=== PATIENT | male | born 1940 | race Caucasian/White ===

== ENCOUNTER 2021-10-16 00:23 | Inpatient (IN) | payer OTHER ==
[2021-10-16 02:38] LABS: BASO % 0.6 % (0-2.0); EOS % 0.1 % (0-4.5); HEMATOCRIT 42.5 % (35.4-49); HEMOGLOBIN 13.7 GM/dL (11.7-16.9); LYMPH % 10.2 % (8-40); MCH 24.6 pg (25.7-33.7); MCHC 32.2 g/dl (32.0-35.9); MEAN CELL VOLUME 76.5 fl (80-96); MEAN PLT VOLUME 8.2 fl (7.5-11.1); MONO % 6.6 % (3.8-10.2); NEUT % 82.5 % (42.8-82.8); PLATELET COUNT 269 10^3/uL (134-434); RBC 5.56 M/mm3 (4.00-5.60); RDW 16.6 % (11.9-15.9); WHITE BLOOD COUNT 10.1 K/mm3 (4.0-10.0)
[2021-10-16 02:52] LABS: CALCIUM 9.9 mg/dL (8.5-10.1)
[2021-10-16 02:53] LABS: ALBUMIN 2.3 g/dl (3.4-5.0); MAGNESIUM 2.1 mg/dL (1.8-2.4)
[2021-10-16 02:56] LABS: CREATININE 2.1 mg/dL (0.55-1.3); PHOSPHOROUS 3.3 mg/dL (2.5-4.9)
[2021-10-16 02:57] LABS: TOT PROT 8.3 g/dl (6.4-8.2)
[2021-10-16 02:58] LABS: BILIRUBIN,TOTAL 0.4 mg/dL (0.2-1)
[2021-10-16 04:42] LABS: CALCIUM 9.5 mg/dL (8.5-10.1)
[2021-10-16 04:43] LABS: BLOOD UREA NITROGEN 41.8 mg/dL (7-18)
[2021-10-16 04:46] LABS: CREATININE 2.1 mg/dL (0.55-1.3)
[2021-10-17 13:29] LABS: HEMATOCRIT 35.8 % (35.4-49); HEMOGLOBIN 11.3 GM/dL (11.7-16.9); MCH 24.5 pg (25.7-33.7); MCHC 31.5 g/dl (32.0-35.9); MEAN PLT VOLUME 8.8 fl (7.5-11.1); PLATELET COUNT 215 10^3/uL (134-434); RBC 4.59 M/mm3 (4.00-5.60); RDW 16.6 % (11.9-15.9); WHITE BLOOD COUNT 17.3 K/mm3 (4.0-10.0)
[2021-10-17 14:07] LABS: CALCIUM 8.9 mg/dL (8.5-10.1)
[2021-10-17 14:08] LABS: BLOOD UREA NITROGEN 41.2 mg/dL (7-18)
[2021-10-17 14:11] LABS: CREATININE 1.6 mg/dL (0.55-1.3)
[2021-10-17 14:56] LABS: ANISOCYTOSIS 0; HELMET CELLS 0; HOWELL-JOLLY BODIES 0; MACROCYTOSIS 0; OVALOCYTE 0; PLATELET ESTIMATE NORMAL; ROULEAU 0; SICKELED CELLS 0; TARGET CELLS 0; TEAR DROP CELLS 0; TOXIC GRANULATION 0
[2021-10-18 07:08] LABS: HEMATOCRIT 33.9 % (35.4-49); HEMOGLOBIN 10.8 GM/dL (11.7-16.9); MCH 24.6 pg (25.7-33.7); MCHC 31.9 g/dl (32.0-35.9); MEAN PLT VOLUME 8.5 fl (7.5-11.1); PLATELET COUNT 188 10^3/uL (134-434); RDW 16.4 % (11.9-15.9); WHITE BLOOD COUNT 19.7 K/mm3 (4.0-10.0)
[2021-10-18 07:26] LABS: CALCIUM 8.9 mg/dL (8.5-10.1)
[2021-10-18 07:27] LABS: BLOOD UREA NITROGEN 39.7 mg/dL (7-18)
[2021-10-18 07:30] LABS: CREATININE 1.4 mg/dL (0.55-1.3)
[2021-10-18 08:58] LABS: ANISOCYTOSIS 2+; PLATELET ESTIMATE NORMAL
[2021-10-18 14:22] LABS: BILIRUBIN,DIRECT 0.1 mg/dL (0.0-0.2)
[2021-10-18 14:24] LABS: BILIRUBIN,TOTAL 0.2 mg/dL (0.2-1)
[2021-10-18 14:28] LABS: ALBUMIN 1.8 g/dl (3.4-5.0); TOT PROT 5.9 g/dl (6.4-8.2)
[2021-10-19 08:42] LABS: HEMATOCRIT 37.6 % (35.4-49); MCH 24.7 pg (25.7-33.7); MCHC 31.9 g/dl (32.0-35.9); MEAN CELL VOLUME 77.2 fl (80-96); PLATELET COUNT 192 10^3/uL (134-434); RBC 4.87 M/mm3 (4.00-5.60); RDW 16.5 % (11.9-15.9); WHITE BLOOD COUNT 21.6 K/mm3 (4.0-10.0)
[2021-10-19 09:08] LABS: BLOOD UREA NITROGEN 32.3 mg/dL (7-18)
[2021-10-19 09:11] LABS: CREATININE 1.4 mg/dL (0.55-1.3)
[2021-10-19 09:41] LABS: ANISOCYTOSIS 0; HELMET CELLS 0; HOWELL-JOLLY BODIES 0; MACROCYTOSIS 0; OVALOCYTE 0; PLATELET ESTIMATE NORMAL; ROULEAU 0; SICKELED CELLS 0; TARGET CELLS 0; TEAR DROP CELLS 0; TOXIC GRANULATION 0
[2021-10-20 08:37] LABS: HEMATOCRIT 38.9 % (35.4-49); HEMOGLOBIN 12.5 GM/dL (11.7-16.9); MCH 24.4 pg (25.7-33.7); MCHC 32.2 g/dl (32.0-35.9); MEAN PLT VOLUME 8.6 fl (7.5-11.1); PLATELET COUNT 162 10^3/uL (134-434); RBC 5.12 M/mm3 (4.00-5.60); RDW 16.8 % (11.9-15.9); WHITE BLOOD COUNT 20.3 K/mm3 (4.0-10.0)
[2021-10-20 08:53] LABS: CALCIUM 8.9 mg/dL (8.5-10.1)
[2021-10-20 08:54] LABS: BLOOD UREA NITROGEN 26.9 mg/dL (7-18)
[2021-10-20 08:57] LABS: CREATININE 1.3 mg/dL (0.55-1.3)
[2021-10-20 11:39] LABS: ANISOCYTOSIS 0; HELMET CELLS 0; HOWELL-JOLLY BODIES 0; MACROCYTOSIS 0; OVALOCYTE 0; PLATELET ESTIMATE NORMAL; ROULEAU 0; SICKELED CELLS 0; TARGET CELLS 0; TEAR DROP CELLS 0; TOXIC GRANULATION 0
[2021-10-21 10:25] LABS: HEMATOCRIT 36.5 % (35.4-49); HEMOGLOBIN 11.7 GM/dL (11.7-16.9); MCH 24.5 pg (25.7-33.7); MCHC 32.1 g/dl (32.0-35.9); MEAN CELL VOLUME 76.5 fl (80-96); PLATELET COUNT 151 10^3/uL (134-434); RBC 4.77 M/mm3 (4.00-5.60); RDW 16.7 % (11.9-15.9); WHITE BLOOD COUNT 24.6 K/mm3 (4.0-10.0)
[2021-10-21 10:31] LABS: INR 1.31 (0.83-1.09); PROTHROMBIN TIME (PATIENT) 15.4 SEC (9.7-13.0)
[2021-10-21 10:34] LABS: ACTIVATED PTT 34.7 SECONDS (25.2-36.5)
[2021-10-21 10:50] LABS: CALCIUM 8.6 mg/dL (8.5-10.1)
[2021-10-21 10:54] LABS: CREATININE 1.2 mg/dL (0.55-1.3)
[2021-10-21 12:01] LABS: ANISOCYTOSIS 0; HELMET CELLS 0; HOWELL-JOLLY BODIES 0; MACROCYTOSIS 0; OVALOCYTE 0; PLATELET ESTIMATE DECREASED; ROULEAU 0; SICKELED CELLS 0; TARGET CELLS 0; TEAR DROP CELLS 0; TOXIC GRANULATION 0
[2021-10-22 08:06] LABS: HEMATOCRIT 41.4 % (35.4-49); HEMOGLOBIN 13.4 GM/dL (11.7-16.9); MCH 25.1 pg (25.7-33.7); MCHC 32.3 g/dl (32.0-35.9); MEAN CELL VOLUME 77.5 fl (80-96); MEAN PLT VOLUME 9.1 fl (7.5-11.1); PLATELET COUNT 166 10^3/uL (134-434); RBC 5.34 M/mm3 (4.00-5.60); RDW 17.2 % (11.9-15.9); WHITE BLOOD COUNT 23.1 K/mm3 (4.0-10.0)
[2021-10-22 08:27] LABS: BLOOD UREA NITROGEN 26.1 mg/dL (7-18); CALCIUM 9.2 mg/dL (8.5-10.1)
[2021-10-22 08:30] LABS: CREATININE 1.3 mg/dL (0.55-1.3)
[2021-10-22 11:11] LABS: ANISOCYTOSIS 1+; MACROCYTOSIS 0; OVALOCYTE 1+; PLATELET ESTIMATE DECREASED; TEAR DROP CELLS 1+
[2021-10-23 09:11] LABS: HEMATOCRIT 40.8 % (35.4-49); HEMOGLOBIN 12.9 GM/dL (11.7-16.9); MCH 24.4 pg (25.7-33.7); MCHC 31.6 g/dl (32.0-35.9); MEAN CELL VOLUME 77.1 fl (80-96); MEAN PLT VOLUME 8.8 fl (7.5-11.1); PLATELET COUNT 186 10^3/uL (134-434); RDW 17.4 % (11.9-15.9); WHITE BLOOD COUNT 28.5 K/mm3 (4.0-10.0)
[2021-10-23 10:41] LABS: ANISOCYTOSIS 0; MACROCYTOSIS 0; OVALOCYTE 1+; PLATELET ESTIMATE NORMAL
[2021-10-24 09:36] LABS: HEMATOCRIT 40.9 % (35.4-49); HEMOGLOBIN 12.9 GM/dL (11.7-16.9); MCH 24.6 pg (25.7-33.7); MCHC 31.5 g/dl (32.0-35.9); MEAN CELL VOLUME 78.1 fl (80-96); MEAN PLT VOLUME 9.8 fl (7.5-11.1); PLATELET COUNT 175 10^3/uL (134-434); RBC 5.23 M/mm3 (4.00-5.60); RDW 17.8 % (11.9-15.9)
[2021-10-24 10:00] LABS: CALCIUM 9.5 mg/dL (8.5-10.1)
[2021-10-24 10:02] LABS: BLOOD UREA NITROGEN 39.1 mg/dL (7-18)
[2021-10-24 10:04] LABS: CREATININE 1.5 mg/dL (0.55-1.3)
[2021-10-24 10:32] LABS: WHITE BLOOD COUNT 30.4 K/mm3 (4.0-10.0)
[2021-10-24 11:11] LABS: ANISOCYTOSIS 1+; MACROCYTOSIS 1+; PLATELET ESTIMATE INCREASED
[2021-10-25 02:25] LABS: ARTERIAL BLD GAS O2 SATURATION 25.3 % (95-98); ARTERIAL BLOOD GAS BASE EXCESS -1.4 mmol/L (-2-2); ARTERIAL BLOOD GAS pH 7.437 (7.350-7.450)
[2021-10-25 02:41] LABS: ALLENS TEST POSITIVE
[2021-10-25 02:42] LABS: ARTERIAL BLOOD GAS PO2 16.5 mmHg (80-100)
[2021-10-25 11:44] LABS: HEMATOCRIT 38.5 % (35.4-49); HEMOGLOBIN 12.1 GM/dL (11.7-16.9); MCH 24.7 pg (25.7-33.7); MCHC 31.4 g/dl (32.0-35.9); MEAN CELL VOLUME 78.5 fl (80-96); MEAN PLT VOLUME 9.1 fl (7.5-11.1); PLATELET COUNT 129 10^3/uL (134-434); RBC 4.91 M/mm3 (4.00-5.60); RDW 18.9 % (11.9-15.9)
[2021-10-25 12:03] LABS: CHLORIDE 108 mmol/L (98-107); SODIUM 145 mmol/L (136-145)
[2021-10-25 12:05] LABS: CALCIUM 8.6 mg/dL (8.5-10.1); CO2 22 mmol/L (21-32)
[2021-10-25 12:06] LABS: BLOOD UREA NITROGEN 34.5 mg/dL (7-18)
[2021-10-25 12:09] LABS: CREATININE 1.5 mg/dL (0.55-1.3)
[2021-10-25 12:15] LABS: ANION GAP 15 MMOL/L (8-16); GLUCOSE,RANDOM 460 mg/dL (74-106)
[2021-10-25 12:17] LABS: WHITE BLOOD COUNT 30.4 K/mm3 (4.0-10.0)
[2021-10-25 12:53] LABS: ANISOCYTOSIS 2+; MACROCYTOSIS 0; PLATELET ESTIMATE DECREASED
[2021-10-26 12:51] LABS: MCH 24.7 pg (25.7-33.7); MCHC 31.7 g/dl (32.0-35.9); MEAN CELL VOLUME 78.1 fl (80-96); MEAN PLT VOLUME 9.6 fl (7.5-11.1); PLATELET COUNT 97 10^3/uL (134-434); RBC 4.87 M/mm3 (4.00-5.60); RDW 18.6 % (11.9-15.9)
[2021-10-26 13:14] LABS: BLOOD UREA NITROGEN 33.6 mg/dL (7-18); CALCIUM 9.1 mg/dL (8.5-10.1)
[2021-10-26 13:17] LABS: CREATININE 1.5 mg/dL (0.55-1.3)
[2021-10-26 13:24] LABS: WHITE BLOOD COUNT 32.8 K/mm3 (4.0-10.0)
[2021-10-26 14:17] LABS: ANISOCYTOSIS 0; HELMET CELLS 0; HOWELL-JOLLY BODIES 0; MACROCYTOSIS 0; OVALOCYTE 0; PLATELET ESTIMATE DECREASED; ROULEAU 0; SICKELED CELLS 0; TARGET CELLS 0; TEAR DROP CELLS 0; TOXIC GRANULATION 0
[2021-10-27 05:37] VITALS: BP 96/46; PULSE 110; TEMP 97.1
[2021-10-27 06:59] LABS: HEMATOCRIT 42.5 % (35.4-49); HEMOGLOBIN 12.8 GM/dL (11.7-16.9); MCH 24.8 pg (25.7-33.7); MCHC 30.1 g/dl (32.0-35.9); MEAN CELL VOLUME 82.2 fl (80-96); MEAN PLT VOLUME 10.8 fl (7.5-11.1); PLATELET COUNT 124 10^3/uL (134-434); RBC 5.17 M/mm3 (4.00-5.60); RDW 19.9 % (11.9-15.9)
[2021-10-27 07:14] LABS: WHITE BLOOD COUNT 45.7 K/mm3 (4.0-10.0)
[2021-10-27 08:38] LABS: ANISOCYTOSIS 1+; MACROCYTOSIS 0; PLATELET ESTIMATE DECREASED
== END 2021-10-27 13:37 | disposition expired | DRG 177 ==
LOC: JER 00:23 → JERBED 04:37 → J4S 22:46
PROVIDERS: ADMIT Internal Medicine; ATTEND Internal Medicine
PROC: XW033E5 Introduction of Remdesivir Anti-infective into Peripheral Vein, Percutaneous Approach, New Technology Group 5 (ICD-10-PCS; 2021-10-16)
PROC: 5A12012 Performance of Cardiac Output, Single, Manual (ICD-10-PCS; principal; 2021-10-27)
PROC: 5A19054 Respiratory Ventilation, Single, Nonmechanical (ICD-10-PCS; 2021-10-27)
PROC: 0BH17EZ Insertion of Endotracheal Airway into Trachea, Via Natural or Artificial Opening (ICD-10-PCS; 2021-10-27)
DX: U07.1 COVID-19 (principal); J86.0 Pyothorax with fistula; J12.82 Pneumonia due to coronavirus disease 2019; J96.01 Acute respiratory failure with hypoxia; C34.90 Malignant neoplasm of unspecified part of unspecified bronchus or lung; K51.90 Ulcerative colitis, unspecified, without complications; J94.8 Other specified pleural conditions; I24.8 Other forms of acute ischemic heart disease; N17.9 Acute kidney failure, unspecified; R64 Cachexia; I47.1 Supraventricular tachycardia; J43.9 Emphysema, unspecified; E78.5 Hyperlipidemia, unspecified; F03.90 Unspecified dementia, unspecified severity, without behavioral disturbance, psychotic disturbance, mood disturbance, and anxiety; E87.6 Hypokalemia; R63.0 Anorexia; I46.9 Cardiac arrest, cause unspecified; Z68.20 Body mass index [BMI] 20.0-20.9, adult; I95.9 Hypotension, unspecified; D72.829 Elevated white blood cell count, unspecified; I10 Essential (primary) hypertension; E86.0 Dehydration; F41.9 Anxiety disorder, unspecified; I48.91 Unspecified atrial fibrillation
CPT/HCPCS: 36415; 36600; 70450-TC; 71045-TC-FY; 71250-TC; 80048; 80053; 80076; 82550; 82728; 82803; 83615; 83690; 83735; 83970; 84100; 84439; 84443; 84484; 85025; 85379; 85610; 85651; 85730; 86140; 87040; 87086; 87106; 87804; 87899; 93005; 93010; 93970-TC; 94660; 97116-GP; 97161-GP; 99285-25; C9399; C9803; J1100; U0003; U0005